=== PATIENT | male | born 1935 | race Caucasian/White ===

== ENCOUNTER 2020-06-20 19:03 | Emergency (ER) | payer BC ==
[~2020-06-20] VITALS: Ht 157.5 cm; Wt 54.4 kg
[2020-06-20 19:20] VITALS: BP_SYST 187
--- NOTE | 2020-06-20 19:30 | NUR ---
Patient to ER bed 8 to gown for evaluation. Side rails up. Report given to Kristen DONALDSON.
--- NOTE | 2020-06-20 19:31 | NUR ---
Came in ER ambulatory from home this 85 year old mal, AAOX4, breathing spontaneously at room air, not in distress noted. With chief complaints of lower abdominal pain and burnig pain in urination every 10-15minutes interval for 2-3days, Known with DM and hypertension. Initial vital signs taken and recorded, stable.
--- NOTE | 2020-06-20 19:41 | NUR ---
Seen and examined by Dr. Hahn, ER Attending
[2020-06-20 19:52] LABS: BILIRUBIN,URINE NEGATIVE (NEGATIVE); BLOOD, URINE 3+ (NEGATIVE); CLARITY/URINE SL CLOUDY (CLEAR); COLOR,URINE BROWN (YELLOW); GLUCOSE,URINE 1+ (NEGATIVE); KETONES,URINE NEGATIVE (NEGATIVE); LEUKOCYTE ESTERASE ,URINE 3+ (NEGATIVE); NITRITE, URINE POSITIVE (NEGATIVE); PROTEIN URINE 2+ (NEGATIVE); UROBILINOGEN,URINE 0.2 (0.2-1.0)
[2020-06-20 20:04] LABS: BASOPHILS # (AUTO) 0.1 K/uL (0.0-0.2); BASOPHILS % (AUTO) 0.9 % (0.0-2.0); EOSINOPHILS # (AUTO) 0.4 K/uL (0.0-0.4); EOSINOPHILS % (AUTO) 3.8 % (0.0-4.0); HEMATOCRIT 35.3 % (36-54); HEMOGLOBIN 11.7 g/dL (14.0-18.0); LYMPHOCYTES # (AUTO) 0.8 K/uL (1.0-5.5); LYMPHOCYTES % (AUTO) 6.7 % (20.5-51.5); MEAN CORPUSCULAR HEMOGLOBIN 32 pg (27-31); MEAN CORPUSCULAR HGB CONC 33 % (32-36); MEAN CORPUSCULAR VOLUME 95 fL (79.0-98.0); MONOCYTES # (AUTO) 0.8 K/uL (0.0-1.0); MONOCYTES % (AUTO) 6.7 % (1.7-9.3); NEUTROPHILS # (AUTO) 9.3 K/uL (1.8-7.7); NEUTROPHILS % (AUTO) 81.9 % (40.0-70.0); PLATELET COUNT (AUTO) 174 K/uL (130-430); RED BLOOD CELL COUNT(AUTO) 3.71 MIL/uL (4.2-6.2); RED CELL DISTRIBUTION WIDTH 14.7 % (9.0-15.0); WHITE BLOOD COUNT (AUTO) 11.4 K/uL (4.8-10.8)
--- NOTE | 2020-06-20 20:05 | NUR ---
# 20 gauge angiocath placed to right ac. Use of asceptic technique. Opsite placed over site. Blood return noted. Flushed with 10 cc of normal saline. No evidence of infiltration noted. Patient tolerated well.
[2020-06-20 20:09] LABS: RBC,URINE >100 /HPF (0-3); WBC,URINE 20-50 /HPF (0-3)
[2020-06-20 20:10] LABS: BACTERIA,URINE MANY /HPF (None Seen); MUCUS,URINE None Seen /LPF (None Seen)
[2020-06-20 20:16] LABS: CHLORIDE 103 mmol/L (98-107); POTASSIUM 4.5 mmol/L (3.5-5.1); SODIUM SERUM 136 mmol/L (136-145)
[2020-06-20 20:17] LABS: ANION GAP 7 (5-15); CALCIUM 8.2 mg/dL (8.4-11.0); CREATININE 1.86 mg/dL (0.55-1.30); GLUCOSE 222 mg/dL (70-99); UREA NITROGEN, BLOOD 55 mg/dL (8-21)
--- NOTE | 2020-06-20 20:25 | NUR ---
To toilet ambulatory, voided freely in small amout as claimed, bladder scan done, 505ml residual noted. Dr. Hahn informed
[2020-06-20 20:26] LABS: ALANINE AMINOTRANSFERASE 45 U/L (12-78); ALBUMIN 3.2 g/dL (3.4-4.8); ASPARTATE AMINOTRANSFERASE 23 U/L (10-37); TOTAL BILIRUBIN 0.4 mg/dL (0.0-1.0)
--- NOTE | 2020-06-20 21:01 | NUR ---
To toilet ambulatory, voided freely in small amount, bladder scan done , still 503ml residual.
--- NOTE | 2020-06-20 21:35 | NUR ---
In and out catheter done, removed 750 dark orange urine , bladder scan done, 80ml residual noted. Dr. Hahn made aware and ordered to remove the catheter
--- NOTE | 2020-06-20 22:05 | NUR ---
Re-assesed by Dr. Hahn, for discharge after the antibiotic
[2020-06-20] MEDS ORDERED: CEPH250C PO (22:15)
[2020-06-20] MEDS ORDERED: cefTRIAXone 1 GM IVPB PREMIX 50 ML IV ONE (22:15)
--- NOTE | 2020-06-20 22:35 | NUR ---
Blood sample collected for 2sets of blood culture and lactic acid.
[2020-06-20 23:26] VITALS: BP_SYST 151
--- NOTE | 2020-06-20 23:26 | NUR ---
Patient given written and verbal discharge instructions and verbalizes understanding. ER MD discussed with patient the results and treatment provided. Patient in stable condition. ID arm band removed. IV catheter removed intact and dressing applied, no active bleeding. Rx of given. Patient educated on pain management and to follow up with PMD. Pain Scale 0/10. Opportunity for questions provided and answered. Medication side effect fact sheet provided.
--- NOTE | 2020-06-23 15:07 | NUR ---
RECEIVED +URINE CULTURE RESULT FROM LAB AND DISCUSSED CASE WITH DR PRINGLE. I CALLED PT AND PT STATES HE FEELS MUCH BETTER, STATES HE SAW HIS KIDNEY/URINARY DOCTOR TODAY AND HE'S ALL BETTER. DR PRINGLE INFORMED. NO FURTHER ACTIONS NEEDED.
== END 2020-06-20 23:26 | disposition home or self-care (01) ==
LOC: SED 19:03
DX: I10 Essential (primary) hypertension (principal); E11.9 Type 2 diabetes mellitus without complications
CPT/HCPCS: 36415; 80053; 81000; 83605; 85025; 87040; 87086; 87186; 96365; 99284; J0696

== ENCOUNTER 2020-07-14 11:17 | Emergency (ER) | payer BC ==
[~2020-07-14] VITALS: Ht 165.1 cm; Wt 60.3 kg
[~2020-07-14 11:17] MED LIST: CEPH250C PO
[2020-07-14 11:33] VITALS: BP_SYST 206
[2020-07-14 12:48] VITALS: BP_SYST 155
== END 2020-07-14 12:47 | disposition home or self-care (01) ==
LOC: SED 11:17
DX: N40.1 Benign prostatic hyperplasia with lower urinary tract symptoms (principal); R33.8 Other retention of urine; I10 Essential (primary) hypertension; E11.9 Type 2 diabetes mellitus without complications; Z79.899 Other long term (current) drug therapy
CPT/HCPCS: 99284